=== PATIENT | male | born 1950 | race Two or more races ===

== ENCOUNTER 2024-12-22 15:01 | Inpatient (IN) | payer OTHER ==
[~2024-12-22] VITALS: Ht 172.7 cm; Wt 70.3 kg
[2024-12-22] MEDS ORDERED: BUPROPION XL150 MG PO (15:48)
[2024-12-22] MEDS ORDERED: LEVO-T25 MCG PO (15:48)
[2024-12-22] MEDS ORDERED: LANSOPRAZOLE30 MG PO (15:48)
[2024-12-22] MEDS ORDERED: ATORVASTATIN CA20 MG PO (15:49)
[2024-12-22] MEDS ORDERED: LANTUS SOL100 UNIT/1 SQ (15:49)
--- NOTE | 2024-12-22 15:51 | NUR ---
SE RECIBE PTE ALERTA Y ORIENTADO X3 EN CUAL REFIERE VENIR POR REFERIDO DE LA DRA. KAREN RUSSELL PARA [place] [facility] POR WBC ELEVADOS. SE SHANNA S/V Y SE UBICA.
[2024-12-22] MEDS ORDERED: CEFTRIAXONE SODIUM 2,000 MG VIAL ONE (16:49)
[2024-12-22] MEDS ORDERED: 0.9 % SODIUM CHLORIDE 1,000 ML IV SCH ×2 (17:00→19:30)
[2024-12-22] MEDS ORDERED: CEFTRIAXONE SODIUM 2,000 MG VIAL IV ONE (17:00)
--- NOTE | 2024-12-22 17:15 | NUR ---
MCMAHON EDUCA A PTE SOBRE [place] [facility], SE SHANNA MUESTRAS DE LABORATORIO UTILIZANDO MEDIDAS ASEPTICAS. SE COLOCA H/L KATELIN DE EDEMA. SE ADMINISTRAN MEDICAMENTOS KRYSTAL ORDEN MEDICA. SE NOTIFICA RX PENDIENTE A REALIZAR.
[2024-12-22 17:42] LABS: BASO % 0.3 % (0.1-1.2); EOS # 0.14 (0.04-0.54); EOS % 0.8 % (0.7-7.0); LYMPH # 1.93 (1.18-3.74); LYMPH % 10.5 % (19.3-53.1); MEAN PLATELET VOLUME 9.10 fl (9.4-12.4); MONO # 1.76 (0.24-0.82); MONO % 9.6 % (4.7-12.5); NEUT # 14.31 (1.56-6.13); NEUT % 77.9 % (34.0-71.1); RED CELL DISTRIBUTION WIDTH 15.7 % (11.6-14.4)
[2024-12-22 17:53] LABS: ERYTHROCYTE SEDIMENTATION RATE 83 mm/hr (0-20)
[2024-12-22 17:59] LABS: COVID-19 AG NEGATIVE (NEGATIVE)
[2024-12-22 18:18] LABS: URINE APPEARANCE Clear; URINE BILIRRUBIN Negative (NEGATIVE); URINE BLOOD Negative; URINE COLOR Yellow; URINE KETONE Negative (NEGATIVE); URINE LEUKOCYTE Negative; URINE NITRATE Negative; URINE PROTEIN Negative (NEGATIVE); URINE UROBILINOGEN 0.2 E.U./dl
[2024-12-22 18:24] LABS: ALT/SGPT 36.0 U/L (12-78); AST/SGOT 26.0 U/L (15-37); BILIRUBIN TOTAL 0.43 mg/dL (0.3-1.2); BUN CREA RATIO 26.0 (7.0-25.0); CREATININE SERUM 1.01 mg/dL (0.70-1.30); GFR 72.01; GLOBULINA 4.7 G/DL (2.4-3.5); GLUCOSE FASTING 148.0 mg/dL (65-100); OSMOLALITY SERUM 274.0 MOSM/KG (275-295)
[2024-12-22 18:28] LABS: URINE BACTERIA 3.5 uL (0.0-1933); URINE CAST 0.14 uL (0.0-1.40); URINE EPITHELIAL CELLS 0.1 uL (0.0-38.8); URINE GLUCOSE >=1000 MG/DL (NEGATIVE); URINE RBC 0.5 uL (0.0-20.8); URINE WBC 0.9 uL (0.0-23.2)
[2024-12-22] MEDS ORDERED: FAMOTIDINE/PF 20 MG in 0.9 % SODIUM CHLORIDE 8 ML IV PUSH SCH (19:24)
[2024-12-22] MEDS ORDERED: DEXTROSE 50 % IN WATER 0.5 G/ML DISP.SYRIN IV PRN (19:30)
[2024-12-22] MEDS ORDERED: INSULIN LISPRO 1,000 UNIT/10 ML UNITS SUBCUTANEO PRN (19:30)
[2024-12-22] MEDS ORDERED: ACETAMINOPHEN 500 MG GEL..CAP PO PRN (19:30)
[2024-12-22 22:32] VITALS: BP 134/72
[2024-12-23] MEDS ORDERED: PIPERACILLIN/TAZOBACTAM SODIUM 3.375 GM in DEXTROSE 5 % IN WATER 100 ML IV SCH
[2024-12-23 01:09] VITALS: BP 102/43; O2SAT 96
[2024-12-23] MEDS ORDERED: LEVOTHYROXINE SODIUM 25 MCG TABLET PO SCH (06:00)
[2024-12-23 08:03] VITALS: BP 91/52
[2024-12-23] MEDS ORDERED: ATORVASTATIN CALCIUM 20 MG TABLET PO SCH (09:00)
[2024-12-23] MEDS ORDERED: BUPROPION HCL 150 MG TABLET.SA PO SCH (09:00)
[2024-12-23] MEDS ORDERED: LACTOBACILLUS ACIDOPHILUS 1 CAP CAP PO SCH (17:00)
[2024-12-23 17:06] VITALS: BP 104/54
[2024-12-24 01:54] VITALS: BP 86/54; O2SAT 97
[2024-12-24 05:51] LABS: BASO % 0.3 % (0.1-1.2); EOS # 0.28 (0.04-0.54); EOS % 1.9 % (0.7-7.0); LYMPH # 1.50 (1.18-3.74); LYMPH % 10.2 % (19.3-53.1); MEAN PLATELET VOLUME 9.10 fl (9.4-12.4); MONO # 1.39 (0.24-0.82); MONO % 9.4 % (4.7-12.5); NEUT # 11.39 (1.56-6.13); NEUT % 77.5 % (34.0-71.1); RED CELL DISTRIBUTION WIDTH 16.1 % (11.6-14.4)
[2024-12-24 08:34] VITALS: BP 101/63
[2024-12-24 18:56] VITALS: BP 111/64
[2024-12-25 01:00] VITALS: BP 95/56; O2SAT 97
[2024-12-25 08:40] VITALS: BP 120/73; O2SAT 99
[2024-12-25 15:11] VITALS: BP 103/57; O2SAT 97
[2024-12-25] MEDS ORDERED: DEXTROSE 5%-WATER 100ML IV.SOLN ONE (23:55)
[2024-12-26 01:54] VITALS: BP 114/56; O2SAT 95
[2024-12-26 07:19] LABS: BASO % 0.4 % (0.1-1.2); EOS # 0.26 (0.04-0.54); EOS % 2.3 % (0.7-7.0); LYMPH # 1.61 (1.18-3.74); LYMPH % 14.4 % (19.3-53.1); MEAN PLATELET VOLUME 9.20 fl (9.4-12.4); MONO # 0.91 (0.24-0.82); MONO % 8.1 % (4.7-12.5); NEUT # 8.27 (1.56-6.13); NEUT % 74.1 % (34.0-71.1); RED CELL DISTRIBUTION WIDTH 16.3 % (11.6-14.4)
[2024-12-26 07:24] LABS: BUN CREA RATIO 12.0 (7.0-25.0); CREATININE SERUM 0.83 mg/dL (0.70-1.30); GFR 90.32; GLUCOSE FASTING 135.0 mg/dL (65-100); OSMOLALITY SERUM 284.0 MOSM/KG (275-295)
[2024-12-26 09:20] VITALS: BP 129/73; O2SAT 97
[2024-12-26 15:47] VITALS: BP 116/70; O2SAT 98
[2024-12-27 01:25] VITALS: BP 103/60; O2SAT 98
[2024-12-27 07:45] VITALS: BP 107/58; O2SAT 98
[2024-12-27 17:29] VITALS: BP 124/71
[2024-12-28 00:30] VITALS: BP 105/50; O2SAT 97
[2024-12-28 04:48] LABS: BASO % 0.4 % (0.1-1.2); EOS # 0.27 (0.04-0.54); EOS % 2.5 % (0.7-7.0); LYMPH # 1.26 (1.18-3.74); LYMPH % 11.6 % (19.3-53.1); MEAN PLATELET VOLUME 8.90 fl (9.4-12.4); MONO # 1.02 (0.24-0.82); MONO % 9.4 % (4.7-12.5); NEUT # 8.23 (1.56-6.13); NEUT % 75.6 % (34.0-71.1); RED CELL DISTRIBUTION WIDTH 16.0 % (11.6-14.4)
[2024-12-28 08:32] VITALS: BP 130/72; O2SAT 100
== END 2024-12-28 11:19 | disposition home or self-care (01) | DRG 872 ==
LOC: ER 15:01 → MEDI 19:45
PROVIDERS: General Practice; Internal Medicine; Internal Medicine Infectious Disease; ADMIT Student in an Organized Health Care Education/Training Program; ATTEND Student in an Organized Health Care Education/Training Program
DX: A41.9 Sepsis, unspecified organism (principal); R65.10 Systemic inflammatory response syndrome (SIRS) of non-infectious origin without acute organ dysfunction; E03.9 Hypothyroidism, unspecified; E11.9 Type 2 diabetes mellitus without complications; Z79.4 Long term (current) use of insulin; D72.829 Elevated white blood cell count, unspecified